=== PATIENT | female | born 1980 | race Caucasian/White ===

== ENCOUNTER 2016-12-28 05:00 | Inpatient (IN) | payer BC ==
[~2016-12-28] VITALS: Ht 160 cm; Wt 94.3 kg
[2016-12-28] MEDS ORDERED: LR 1,000 ML IV ONE (05:26)
[2016-12-28] MEDS ORDERED: CEFAZOLIN 2 GM IVPB PREMIX 50 ML IV ONE (05:30)
[2016-12-28] MEDS ORDERED: ONDANSETRON HCL 4 MG/2 ML VIAL IVP ONE (07:25)
[2016-12-28] MEDS ORDERED: NS IRRIG SOLN 1000 ML IR ONE (07:25)
[2016-12-28] MEDS ORDERED: OXYTOCIN 10 UNIT/ML VIAL IV ONE (07:25)
[2016-12-28] MEDS ORDERED: KETAMINE HCL 500 MG/10 ML VIAL IVP ONE (07:25)
[2016-12-28] MEDS ORDERED: LR 1,000 ML IV.SOLN IV ONE (07:25)
[2016-12-28] MEDS ORDERED: MIDAZOLAM HCL 5 MG/5 ML VIAL IVP ONE (07:25)
[2016-12-28] MEDS ORDERED: MORPHINE SULFATE 10MG/10ML PF AMP EP ONE (08:25)
[2016-12-28] MEDS ORDERED: MORPHINE 4 MG/ML INJ. SYRINGE IVP PRN ×3 (08:30)
[2016-12-28] MEDS ORDERED: METOCLOPRAMIDE HCL 10 MG/2 ML VIAL IVP PRN (08:30)
[2016-12-28] MEDS ORDERED: ONDANSETRON HCL 4 MG/2 ML VIAL IVP PRN (08:30)
[2016-12-28] MEDS ORDERED: KETOROLAC TROMETHAMINE 60 MG/2 ML VIAL IM PRN (08:30)
[2016-12-28] MEDS ORDERED: DIPHENHYDRAMINE INJ 50 MG/ML VIAL IM PRN (08:30)
[2016-12-28] MEDS ORDERED: NALOXONE HCL 0.4 MG/ML AMP (NARCAN) IVP PRN (08:30)
[2016-12-28] MEDS ORDERED: MORPHINE SULFATE 10MG/10ML PF AMP SP SCH (08:30)
[2016-12-28] MEDS ORDERED: OXYTOCIN/NORMAL SALINE 1,000 ML IV ONE (09:24)
[2016-12-28] MEDS ORDERED: LR 1,000 ML IV SCH (09:24)
[2016-12-28] MEDS ORDERED: BISACODYL 10 MG/SUPPOSITORY RC PRN (09:30)
[2016-12-28] MEDS ORDERED: SENNOSIDES/DOCUSATE SODIUM 1 TAB TABLET(SENOKOT-S) PO PRN (09:30)
[2016-12-28] MEDS ORDERED: ANUSOL 1 EA SUPP.RECT (PREPARATION H) RC PRN (09:30)
[2016-12-28] MEDS ORDERED: SIMETHICONE 80 MG TAB.CHEW PO PRN (09:30)
[2016-12-28] MEDS ORDERED: HYDROmorphone 2 MG TAB PO PRN (09:30)
[2016-12-28] MEDS ORDERED: RHO(D) IMMUNE GLOBULIN/MALTOSE 1500 UNITS/1.3 ML (WINHRO) IM PRN (09:30)
[2016-12-28] MEDS ORDERED: LANOLIN 7 GM OINT. TP PRN (09:30)
[2016-12-28] MEDS ORDERED: MEASLES,MUMPS&RUBELLA VACC/PF 12500 UNIT/0.5 ML VIAL SUBQ PRN (09:30)
[2016-12-28 09:43] VITALS: BP_SYST 128
[2016-12-28] MEDS ORDERED: TEMAZEPAM 15 MG CAPSULE PO PRN (21:00)
[2016-12-29] MEDS: IBUPROFEN 600 MG TABLET PO SCH ×4 (06:00→18:42)
[2016-12-29 06:44] LABS: BASOPHILS % (AUTO) 0.2 % (0.0-2.0); EOSINOPHILS # (AUTO) 0.1 K/uL (0.0-0.4); EOSINOPHILS % (AUTO) 0.6 % (0.0-4.0); HEMATOCRIT 31.2 % (36-48); HEMOGLOBIN 10.3 g/dL (12.0-16.0); LYMPHOCYTES # (AUTO) 2.3 K/uL (1.0-5.5); MEAN CORPUSCULAR HEMOGLOBIN 30 pg (27-31); MEAN CORPUSCULAR HGB CONC 33 % (32-36); MEAN CORPUSCULAR VOLUME 90 fL (79.0-98.0); MONOCYTES # (AUTO) 0.7 K/uL (0.0-1.0); MONOCYTES % (AUTO) 6.6 % (1.7-9.3); NEUTROPHILS # (AUTO) 7.2 K/uL (1.8-7.7); NEUTROPHILS % (AUTO) 70.6 % (40.0-70.0); PLATELET COUNT (AUTO) 190 K/uL (130-430); RED BLOOD CELL COUNT(AUTO) 3.47 MIL/uL (4.2-6.2); RED CELL DISTRIBUTION WIDTH 13.3 % (9.0-15.0); WHITE BLOOD COUNT (AUTO) 10.3 K/uL (4.8-10.8)
[2016-12-29] MEDS: DOCUSATE SODIUM 100 MG CAPSULE PO PRN ×2 (07:45→18:42)
[2016-12-30] MEDS: DOCUSATE SODIUM 100 MG CAPSULE PO PRN (06:18)
[2016-12-30] MEDS: IBUPROFEN 600 MG TABLET PO SCH ×3 (06:18→12:44)
== END 2016-12-30 15:50 | disposition home or self-care (01) | DRG 765 ==
LOC: SPU 05:00
PROVIDERS: ADMIT Obstetrics & Gynecology; ATTEND Obstetrics & Gynecology
PROC: 3E0134Z Introduction of Serum, Toxoid and Vaccine into Subcutaneous Tissue, Percutaneous Approach (ICD-10-PCS; 2016-12-28)
PROC: 10D00Z1 Extraction of Products of Conception, Low, Open Approach (ICD-10-PCS; principal; 2016-12-28 07:30)
DX: O99.824 Streptococcus B carrier state complicating childbirth (principal); O98.32 Other infections with a predominantly sexual mode of transmission complicating childbirth; E66.01 Morbid (severe) obesity due to excess calories; A60.09 Herpesviral infection of other urogenital tract; O13.4 Gestational [pregnancy-induced] hypertension without significant proteinuria, complicating childbirth; O99.214 Obesity complicating childbirth; Z37.0 Single live birth; Z3A.39 39 weeks gestation of pregnancy; Z68.37 Body mass index [BMI] 37.0-37.9, adult; O09.513 Supervision of elderly primigravida, third trimester; Z23 Encounter for immunization
CPT/HCPCS: 36415; 85025; 86886; 86900; 86901; 94760; J0690; J1885; J2250; J2270; J2274; J2405; J2590; J7120

== ENCOUNTER 2021-06-29 08:11 | Day surgery (SDC) | payer BC ==
[~2021-06-29] VITALS: Ht 160 cm; Wt 102.1 kg
[~2021-06-29 08:11] MED LIST: CEFAZOLIN 1 GM IVPB PREMIX 50 ML IV ONE
[2021-06-29 09:16] LABS: HCG,QUAL RESULT NEGATIVE (NEGATIVE)
[2021-06-29] MEDS ORDERED: DESFLURANE 15 MIN GAS INH ONE (11:17)
[2021-06-29] MEDS ORDERED: LR 1,000 ML IV.SOLN IV ONE (11:17)
[2021-06-29] MEDS ORDERED: ceFAZolin SODIUM 1 GM VIAL ONE (11:17)
[2021-06-29] MEDS ORDERED: fentaNYL CITRATE/PF 100 MCG/2 ML AMP ONE (11:17)
[2021-06-29] MEDS ORDERED: ONDANSETRON HCL 4 MG/2 ML VIAL ONE (11:17)
[2021-06-29] MEDS ORDERED: PROPOFOL 200MG/ 20ML VIAL (DIPRIVAN) IV ONE (11:17)
[2021-06-29] MEDS ORDERED: MIDAZOLAM HCL 2 MG/2 ML VIAL (VERSED) ONE (11:17)
[2021-06-29] MEDS ORDERED: DEXAMETHASONE SOD PHOSPHATE 4 MG/ML VIAL ONE (11:17)
[2021-06-29] MEDS ORDERED: SUGAMMADEX SODIUM 200 MG/2 ML VIAL IV ONE (11:17)
[2021-06-29] MEDS ORDERED: KETOROLAC TROMETHAMINE 30 MG VIAL ONE (11:17)
[2021-06-29] MEDS ORDERED: ROCURONIUM BROMIDE 10 MG/ML (ZEMURON) ONE (11:17)
[2021-06-29] MEDS ORDERED: MEPERIDINE HCL/PF 25 MG/ML DISP.SYRIN IVP PRN (12:00)
[2021-06-29] MEDS ORDERED: LR 1,000 ML IV SCH (12:00)
[2021-06-29] MEDS ORDERED: hydrALAZINE HCL 20 MG/ML VIAL IVP PRN (12:00)
[2021-06-29] MEDS ORDERED: METOCLOPRAMIDE HCL 10 MG/2 ML VIAL IVP PRN (12:00)
[2021-06-29] MEDS ORDERED: LABETALOL 100 MG/ 20ML VIAL IVP PRN (12:00)
[2021-06-29] MEDS ORDERED: HYDROmorphone 1 MG/ML INJ. CARTRIDGE IVP PRN ×3 (12:00→12:45)
[2021-06-29] MEDS ORDERED: ACETAMINOPHEN I.V. 1000 MG 100 ML IV ONE (12:13)
[2021-06-29] MEDS ORDERED: HYDROcodone/ACETAMIN 5-325 MG TAB (NORCO/ VICODIN) PO PRN (12:45)
[2021-06-29] MEDS ORDERED: D5/0.45 NS 1,000 ML IV SCH (12:45)
[2021-06-29] MEDS ORDERED: HYDROmorphone 1 MG/ML INJ. CARTRIDGE ONE (13:28)
[2021-06-29 16:46] VITALS: BP_SYST 138
== END 2021-06-29 16:35 | disposition home or self-care (01) ==
LOC: SDS 08:11 → SMU 08:12 → SDS 16:35
PROVIDERS: ATTEND Colon & Rectal Surgery
DX: K80.10 Calculus of gallbladder with chronic cholecystitis without obstruction (principal); E66.01 Morbid (severe) obesity due to excess calories; K21.9 Gastro-esophageal reflux disease without esophagitis; E78.5 Hyperlipidemia, unspecified; I10 Essential (primary) hypertension; Z79.899 Other long term (current) drug therapy; Z20.822 Contact with and (suspected) exposure to COVID-19
CPT/HCPCS: 36415 ×2; 47563; 74300; 84703; 87426; 87635; 88304; C1727; C1758; J0131; J0690 ×2; J1100; J1170; J1885; J2405; J2704; J3010; J3465; J3490; J7120; Q9967; U0003; 76000

== ENCOUNTER 2022-07-28 07:43 | Emergency (ER) | payer BC ==
[~2022-07-28] VITALS: Ht 160 cm; Wt 104.3 kg
[2022-07-28 07:45] VITALS: BP_SYST 135
--- NOTE | 2022-07-28 07:45 | NUR ---
BROUGHT BACK TO BED #8 AND TRIAGED. REPORT GIVEN TO EUSEBIO
--- NOTE | 2022-07-28 08:05 | NUR ---
DR DELGADO AT BEDSIDE
--- NOTE | 2022-07-28 08:10 | NUR ---
PATIENT BIBS C/O TINGLING TO BILATERAL FEET X 2 DAYS, RADIATES TO KNEES. C/O DIZZINESS THAT BEGAN THIS AM. DENIES N/V. PATIENT IS ABLE TO MOVE FEET, WIGGLE TOES. BILAT PEDAL PULSES PRESENT. DENIES NEW MEDS OR NEW FOODS. PATIENT STATES MED HX OF HTN, STATES SHE USED TO TAKE RX MEDS BUT "STOPPED TAKING THEM D/T NOT HAVING HIGH BLOOD PRESSURE ANYMORE". OTHER MED HX: GERD. SX HX INCLUDES , BREAST AUGMENTATION, CHOLESYSTECTOMY. TAKES PRILOSEC.
[2022-07-28] MEDS ORDERED: MECLIZINE HCL 25 MG TABLET (ANITVERT) PO ONE (08:15)
[2022-07-28] MEDS ORDERED: METOCLOPRAMIDE HCL 10 MG/2 ML VIAL IVP ONE (08:15)
--- NOTE | 2022-07-28 08:40 | NUR ---
UA COLLECTED. HCG NEGATIVE. SAMPLE TAKEN TO LAB.
[2022-07-28 09:20] LABS: BASOPHILS # (AUTO) 0.1 K/uL (0.0-0.2); BASOPHILS % (AUTO) 0.7 % (0.0-2.0); EOSINOPHILS # (AUTO) 0.2 K/uL (0.0-0.4); EOSINOPHILS % (AUTO) 2.6 % (0.0-4.0); HEMATOCRIT 36.3 % (36-48); HEMOGLOBIN 11.9 g/dL (12.0-16.0); LYMPHOCYTES # (AUTO) 2.7 K/uL (1.0-5.5); LYMPHOCYTES % (AUTO) 36.3 % (20.5-51.5); MEAN CORPUSCULAR HEMOGLOBIN 30 pg (27-31); MEAN CORPUSCULAR HGB CONC 33 % (32-36); MEAN CORPUSCULAR VOLUME 90 fL (79.0-98.0); MONOCYTES # (AUTO) 0.4 K/uL (0.0-1.0); MONOCYTES % (AUTO) 6.1 % (1.7-9.3); NEUTROPHILS % (AUTO) 54.3 % (40.0-70.0); PLATELET COUNT (AUTO) 302 K/uL (130-430); RED BLOOD CELL COUNT(AUTO) 4.03 MIL/uL (4.2-6.2); RED CELL DISTRIBUTION WIDTH 13.7 % (9.0-15.0); WHITE BLOOD COUNT (AUTO) 7.3 K/uL (4.8-10.8)
[2022-07-28 09:26] LABS: ANION GAP 4 (5-15); CALCIUM 9.1 mg/dL (8.4-11.0); CHLORIDE 105 mmol/L (98-107); CREATININE 0.72 mg/dL (0.55-1.30); GFR AFRICAN AMERICAN 114 mL/min (>90); GLUCOSE 101 mg/dL (70-99); UREA NITROGEN, BLOOD 10 mg/dL (8-21)
[2022-07-28 09:32] LABS: ALANINE AMINOTRANSFERASE 55 U/L (12-78); ALBUMIN 3.1 g/dL (3.4-4.8); ASPARTATE AMINOTRANSFERASE 29 U/L (10-37); TOTAL BILIRUBIN 0.4 mg/dL (0.0-1.0)
[2022-07-28] MEDS ORDERED: MECL-261 PO (09:45)
[2022-07-28 10:45] VITALS: BP_SYST 135
--- NOTE | 2022-07-28 10:45 | NUR ---
Patient given written and verbal discharge instructions and verbalizes understanding. ER MD DELGADO discussed with patient the results and treatment provided. Patient in stable condition. ID arm band removed. IV catheter removed intact and dressing applied, no active bleeding. Rx of MECLIZINE given. Patient educated on symptom management and to follow up with PMD. Pain Scale 0/10. Opportunity for questions provided and answered. Medication side effect fact sheet provided.
== END 2022-07-28 10:45 | disposition home or self-care (01) ==
LOC: SED 07:43
DX: R42 Dizziness and giddiness (principal); R11.0 Nausea; R20.2 Paresthesia of skin; Z88.5 Allergy status to narcotic agent; Z88.6 Allergy status to analgesic agent; Z79.899 Other long term (current) drug therapy
CPT/HCPCS: 99285; 96374; 70450; 71045; 80053; 85025; 84484; 36415; 76376; 81025; J8597; J2765; 93005